=== PATIENT | male | born 1955 ===

== ENCOUNTER 2021-10-29 06:14 | Day surgery (SDC) | payer MEDICARE, OTHER ==
[2021-10-27 12:21] VITALS: BMI 26.6
[2021-10-29] MEDS ORDERED: Lidocaine 1% MPF 2 ML VIAL ONE (06:53)
[2021-10-29] MEDS ORDERED: Lidocaine 2% MPF 10 ML AMP (For Epidural Use) ONE (07:13)
[2021-10-29] MEDS ORDERED: PROPOFOL 60 ML ONE (07:13)
== END 2021-10-29 08:48 | disposition home or self-care (01) ==
LOC: CSHSDC 06:14
PROVIDERS: ATTEND Internal Medicine Gastroenterology
PROC: 0DBH8ZZ Excision of Cecum, Via Natural or Artificial Opening Endoscopic (ICD-10-PCS; principal; 2021-10-29)
DX: Z12.11 Encounter for screening for malignant neoplasm of colon (principal); D12.0 Benign neoplasm of cecum; K64.9 Unspecified hemorrhoids; Z20.822 Contact with and (suspected) exposure to COVID-19
CPT/HCPCS: 88305; J2704